=== PATIENT | male | born 1990 | race American Indian/Alaskan Native ===

== ENCOUNTER 2020-03-21 10:12 | Outpatient (CLI) | payer OTHER ==
--- NOTE | 2020-03-21 11:34 | XRay Report ---
LEFT ANKLE 3 VIEWS INDICATION: PAIN, JOINT, ANKLE AND FOOT, LEFT. COMPARISON: None. IMPRESSION: No acute osseous or soft tissue abnormality. No significant DJD. LEFT FOOT 3 VIEWS INDICATION: PAIN, JOINT, ANKLE AND FOOT, LEFT. COMPARISON: None. IMPRESSION: No acute osseous or soft tissue abnormality. No significant DJD. Signer Name: Guy Helton Jr, MD Signed: 03/21/2020 11:30 AM Workstation Name: [id number]
== END 2020-03-21 10:13 | disposition home or self-care (01) ==
LOC: SPVIMAG 10:12
PROVIDERS: ATTEND Internal Medicine
DX: M25.572 Pain in left ankle and joints of left foot (principal)